=== PATIENT | male | born 1970 | race Caucasian/White ===

== ENCOUNTER 2024-03-03 16:19 | Outpatient (AMB) | payer BC, SELFPAY ==
[2024-03-03 16:20] VITALS: BP 142/88; PULSE 101; TEMP 36.9; O2SAT 99; BMI 28.2
--- NOTE | 2024-03-03 16:20 | AM.OFFWIN_ITS ---
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 Movement of changing position in sleep brings on sudden dizzy spell and feels like passing out. Patient Tobacco Use Status: Never used Tobacco Allergies No Known Allergies Allergy (Unverified 06/15/20 15:06) HPI HPI Comments History of Present Illness Details Patient is a 53-year-old male who is presenting with neck pain. Patient states that when he is sleeping in the middle of the night he wakes up, opens his eyes turns his head to the left or right and immediately gets dizzy and feels like he is going to pass out. He states he does wear his sleep apnea machine each night and is scheduled to have a sleep study soon. He states he has a history PVCs and had a Holter monitor test in October of 2022 which showed he had some PVCs and 2 runs of nonsustained V-tach, no medications were added by his micromatic hone operator. Patient states he feels like his symptoms are getting worse over the last 6 months. He also admits to a dull pain in his neck. He denies fevers. He states he immediately took an EKG via his Apple watch, both times it happened overnight last night and he showed me these EKG with a heart rate of 105 and 107. Patient states he has been eating and drinking normally, does not have any kidney disease and has never had an electrolyte abnormality. He has not experiencing these symptoms currently. [facility] Social History Patient Tobacco Use Status: Never used Tobacco Review of Systems Const All systems reviewed & are unremarkable except as noted in HPI and below Physical Exam Vital Signs: Last Vital Signs Temp 98.4 F 03/03/24 16:20 Pulse 101 H 03/03/24 16:20 BP 142/88 H 03/03/24 16:20 Pulse Ox 99 03/03/24 16:20 Oxygen Delivery Method Room Air 03/03/24 16:20 BMI result Body Mass Index 28.2 Const General: cooperative, healthy appearing, comfortable, no acute distress and well developed Orientation/consciousness: patient oriented x3 Limitations: no limitations HEENT Head: Yes normal to inspection Ears: external ears normal and TM's normal bilaterally General nose exam: Normal external nose present Eyes General: appearance normal, both eyes and all related structures Neck Neck: Yes normal visual inspection, Yes full ROM, Yes no meningeal signs, Yes trachea midline and No tender Resp Effort & Inspection: normal respiratory effort and able to speak in complete sentences Skin General skin exam: no rashes or lesions noted Neuro General: patient oriented x3 and no meningeal signs Extrem General: Yes normal to inspection Assessment & Plan Assessment & Plan (1) Neck pain: Code(s): M54.2 - Cervicalgia Plan: Ordered neck x-ray, patient will return to the clinic tomorrow to have that done to rule out any mechanical issues but if he does need a follow-up CT scan, I advised I can not order here, patient aware. Advised to follow up with his micromatic hone operator as he likely needs a Holter monitor test to be redone as his symptoms are getting worse. His ears cleaned no fluid behind the tympanic membranes, he did not complain of any head congestion tenderness is very unlikely something to do with his ears. Plan see above Orders: Orders XR soft tissue neck Today M54.2 - Cervicalgia Coding Level of Care Code New Pt Level 3 (06948) Diagnoses Neck pain M54.2
== END 2024-03-03 16:59 | disposition home or self-care (01) ==
PROVIDERS: PCP Internal Medicine; Visit Provider Physician Assistant
DX: M54.2 Cervicalgia (principal)
CPT/HCPCS: 99203

== ENCOUNTER 2024-03-03 20:11 | Observation (INO) | payer BC, SELFPAY ==
--- NOTE | ~2024-03-03 | CT_ITS ---
EXAMINATION: CT ANGIOGRAM HEAD CT ANGIOGRAM NECK CLINICAL INFORMATION: dissection, ? Large vessel occlusion, dizziness COMPARISON: None. TECHNIQUE: Test bolus sequences followed by intravenous administration 85 mL of Omnipaque 350. Helical imaging was performed in the axial plane from the aortic arch to the skull vertex. Delayed postcontrast imaging of the head was also performed. The data was processed at the ct scan technologist's workstation for generation of MIP sequences. Angled MIPs and volume rendered reformatted images were also generated at an offline 3D workstation. Stenoses are assessed in accordance with Giles et al. Quantification of Carotid Stenosis on CT Angiography. AJR 2006. 27(1):13-19. [address] CT examination was performed using dose optimization techniques as appropriate, variously including the following: *Automated exposure control *Adjustment of mA and/or kV according to patient size (this includes techniques or standardized protocols for targeted exams where dose is matched to indication/reason for exam; i.e. extremities or head) *Use of iterative reconstruction technique DLP: 2499 mGy-cm FINDINGS: CT HEAD: The ventricles and sulci are normal in size and configuration without significant volume loss or hydrocephalus. There is no abnormal attenuation within the brain parenchyma. No territorial loss of fam-white differentiation. No acute intracranial hemorrhage or extra-axial fluid collection. No mass lesion, significant mass effect, or herniation pattern. No pathologic intra-axial enhancement or regional oligemia. The orbits are grossly normal. Retention cyst along the floor of the right maxillary sinus. No mastoid effusion. Osseous structures are intact. CTA HEAD: No hemodynamically significant stenosis or occlusion in the anterior or posterior circulation. Duplicated anterior communicating arteries and MEMO trifurcation, a normal anatomic variant. Right MCA trifurcation noted. No aneurysms and no high flow vascular malformations. Timing of the contrast bolus allows assessment of the major dural venous sinuses, which all opacify normally CTA NECK: Classic 3 vessel branching pattern of the aortic arch. Origins of the great vessels are widely patent. The common carotid arteries are widely patent. Minimal atherosclerotic plaque at the carotid bifurcations without associated stenosis. The internal carotid arteries are widely patent. The right vertebral artery is dominant. The vertebral artery ostia are widely patent. Both vertebral arteries are widely patent throughout their extracranial cervical course. CT NECK: Suggestion of thyromegaly can be correlated with thyroid function tests. 3 mm hypodensity in the left thyroid lobe below size criteria for imaging follow-up. Coronary artery vascular calcifications. Disc osteophyte complex at C5-C6 with contiguous uncovertebral joint hypertrophy contribute to apparent mild to moderate spinal canal and severe left greater than right neural foraminal stenosis. CT/CT angio head neck IMPRESSION: 1. No acute intracranial findings. 2. No acute arterial occlusion or hemodynamically significant stenosis within the head or neck. No arterial dissection or intracranial saccular aneurysm. 3. Suggestion of thyromegaly can be correlated with thyroid function tests. 4. Disc osteophyte complex at C5-C6 with contiguous uncovertebral joint hypertrophy contribute to apparent mild to moderate spinal canal and severe left greater than right neural foraminal stenosis.
--- NOTE | ~2024-03-03 | XR_ITS ---
EXAMINATION: XR CHEST CLINICAL INFORMATION: High blood pressure COMPARISON: 07/08/2007, report only TECHNIQUE: 2 views of the chest were obtained. FINDINGS: No significant abnormality is noted involving the heart, lungs, mediastinum, bony thorax or soft tissues. XR/XR chest 2V IMPRESSION: Unremarkable examination.
[2024-03-03 20:20] VITALS: BP 181/107; PULSE 87; RESP 17; TEMP 36.9; O2SAT 98; BMI 28.2
--- NOTE | 2024-03-03 20:20 | ED.GENADULT ---
HPI - General Adult General Chief complaint: General Medical Stated complaint: hypertensive crisis, dizziness Time Seen by Provider: 03/03/24 21:05 History of Present Illness HPI narrative: Patient is a 53-year-old male has a history of ventricular tachycardia in the past. Related Data Allergies Allergy/AdvReac Type Severity Reaction Status Date / Time No Known Allergies Allergy Verified 03/03/24 20:22 REPLACED BY [facility] Past Medical History Medical History FATOUMATA (obstructive sleep apnea) Mood disorder Social History Social History Patient Tobacco Use Status: Never used Tobacco Smoked in Last 30 Days: No Use of substances other than those prescribed or required for medical reasons: No Advance Directives: No Advance Directives Information Provided: No Do you have a plan to hurt others: No Plan Physical Exam ED Vital Signs: Vital Signs - 24 hr 03/03/24 20:20 03/03/24 21:09 03/03/24 21:46 Temperature 98.4 F 98.0 F Pulse Rate 87 89 74 Respiratory Rate 17 16 16 Blood Pressure 181/107 H 159/103 H 171/91 H Pulse Oximetry 98 98 97 Oxygen Delivery Method Room Air Room Air Room Air 03/03/24 23:43 Temperature 98.8 F Pulse Rate 84 Respiratory Rate 15 Blood Pressure 164/97 H Pulse Oximetry 97 Oxygen Delivery Method Room Air BMI result Body Mass Index 28.2 Course Course Course Narrative: This is a rapid medical exam performed by Tu Eddy NP: Additional HPI, ROS, PE not included below will be deferred to primary provider. Patient is a 53-year-old male presenting to the ED stating he is here for a hypertensive crisis. SBP 193 at home. Recent moderate headaches, currently 2/10. Denies visual changes. Reports intermittent dizziness, worse with position changes especially at night, states I feel like I'm going to pass out. BP 181/107 in triage. Not on BP medication currently. Plan: EKG, labs, CXR Medications Administered Discontinued Medications Generic Name Dose Route Start Last Admin Trade Name Freq PRN Reason Stop Dose Admin Iohexol 80 ml 03/03/24 22:44 03/03/24 22:45 Iohexol 350 Mg/Ml 100 Ml Infus..Btl IV 03/03/24 22:45 80 ml ONCE ONE Administration Medical Decision Making Lab Data 03/03/24 20:33 03/03/24 20:33 Labs: Lab Results 03/03/24 Range/Units 20:33 WBC 9.8 (4.8-10.8) X10*3/uL RBC 5.07 (4.60-5.80) X10*6/uL Hgb 15.7 (14.0-18.0) g/dl Hct 45.2 (42.0-52.0) % MCV 89.2 (80.0-98.0) fL MCH 31.0 (27.0-33.0) pg MCHC 34.7 (31.0-36.0) g/dl RDW 12.5 (11.0-16.0) % Plt Count 247 (160-400) X10*3/uL MPV 10.6 (9.4-12.4) fL Immature Gran % (Auto) 0.2 (0.0-0.4) % Neut % (Auto) 54.4 (45-73) % Lymph % (Auto) 36.6 (20-40) % [place] % (Auto) 8.0 (2-11) % Eos % (Auto) 0.7 (0-4) % Baso % (Auto) 0.1 (0-2) % Lymph # (Auto) 3.6 (1.2-4.9) X10*3/uL [place] # (Auto) 0.8 (0.1-1.2) X10*3/uL Eos # (Auto) 0.1 (0.0-0.4) X10*3/uL Baso # (Auto) 0.0 (0.0-0.2) X10*3/uL Abs Immat Gran (auto) 0.02 (0.00-0.03) X10*3/uL Absolute Neuts (auto) 5.3 (2.0-8.3) x10*3/uL Absolute Nucleated RBC 0.000 (0.0-0.012) X10*3/uL Nucleated RBC % (auto) 0.0 (0.0-0.2) /100WBC PT 11.9 (11.1-13.3) SEC INR 1.0 (0.9-1.1) Sodium 139 (135-145) mmol/L Potassium 4.3 (3.3-5.1) mmol/L Chloride 102 (96-108) mmol/L Carbon Dioxide 26 (22-29) mmol/L Anion Gap 15 (12-20) BUN 15 (9-16) mg/dL Creatinine 1.00 (0.5-1.4) mg/dL Estim Creat Clear Calc 104.8 Estimated GFR > 60 Random Glucose 124 H (60-115) mg/dL Calcium 9.6 (8.4-10.2) mg/dL Total Bilirubin 0.5 (0.0-1.0) mg/dL AST 20 (5-37) U/L ALT 28 (0-40) U/L Alkaline Phosphatase 64 (39-117) U/L Troponin I High Sens 3.2 (<3.5-35.0) ng/L Total Protein 7.6 (6.5-8.0) g/dL Albumin 4.4 (3.5-5.0) g/dL Discharge Plan Discharge Clinical Impression: Near syncope Patient Disposition: Admitted as Observation Print Language: Chinese
--- NOTE | 2024-03-03 20:22 | ECG_ITS ---
Test Reason : hypertension Blood Pressure : / mmHG Vent. Rate : 094 BPM Atrial Rate : 094 BPM P-R Int : 180 ms QRS Dur : 100 ms QT Int : 362 ms P-R-T Axes : 064 -07 031 degrees QTc Int : 452 ms Normal sinus rhythm Normal ECG No previous ECGs available Referred By: Debbie Eddy Electronically Signed By:TOYA BLANCO MD
[2024-03-03 20:36] LABS: MANUAL DIFF FLAG NO
[2024-03-03 20:43] LABS: Prothrombin Time 11.9 SEC (11.1-13.3)
[2024-03-03 20:53] LABS: Alanine Aminotransferase 28 U/L (0-40); Albumin Level 4.4 g/dL (3.5-5.0); Alkaline Phosphatase 64 U/L (39-117); Anion Gap 15 (12-20); Aspartate Amino Transferase 20 U/L (5-37); Bilirubin Total 0.5 mg/dL (0.0-1.0); Blood Urea Nitrogen 15 mg/dL (9-16); Calcium 9.6 mg/dL (8.4-10.2); Carbon Dioxide 26 mmol/L (22-29); Chloride 102 mmol/L (96-108); Creatinine Clr Calc Pharmacy 104.8; Estimated Glomerular Filt Rate > 60; Glucose Random 124 mg/dL (60-115); Potassium 4.3 mmol/L (3.3-5.1); Sodium 139 mmol/L (135-145); Total Protein 7.6 g/dL (6.5-8.0)
[2024-03-03 21:00] LABS: Troponin-I High Sensitivity 3.2 ng/L (<3.5-35.0)
[2024-03-03 21:04] LABS: Basophils Percent Auto 0.1 % (0-2); Eosinophils Absolute Auto 0.1 X10*3/uL (0.0-0.4); Eosinophils Percent Auto 0.7 % (0-4); Hematocrit 45.2 % (42.0-52.0); Hemoglobin 15.7 g/dl (14.0-18.0); Imm Gran Abs Auto 0.02 X10*3/uL (0.00-0.03); Imm Gran Pct Auto 0.2 % (0.0-0.4); Lymphocytes Absolute Auto 3.6 X10*3/uL (1.2-4.9); Lymphocytes Percent Auto 36.6 % (20-40); Mean Corpuscular HGB Conc 34.7 g/dl (31.0-36.0); Mean Corpuscular Volume 89.2 fL (80.0-98.0); Mean Platelet Volume 10.6 fL (9.4-12.4); Monocytes Absolute Auto 0.8 X10*3/uL (0.1-1.2); Neutrophils Absolute Auto 5.3 x10*3/uL (2.0-8.3); Neutrophils Percent Auto 54.4 % (45-73); Platelet Count 247 X10*3/uL (160-400); Red Blood Count 5.07 X10*6/uL (4.60-5.80); Red Cell Distribution Width 12.5 % (11.0-16.0); White Blood Count 9.8 X10*3/uL (4.8-10.8)
[2024-03-03 21:09] VITALS: BP 159/103; PULSE 89; RESP 16; O2SAT 98
[2024-03-03 21:46] VITALS: BP 171/91; PULSE 74; RESP 16; TEMP 36.7; O2SAT 97
--- NOTE | 2024-03-03 21:48 | ED.GENADULT ---
HPI - General Adult General Chief complaint: General Medical Stated complaint: hypertensive crisis, dizziness Time Seen by Provider: 03/03/24 21:05 History of Present Illness HPI narrative: Patient is a 53-year-old male with a history of dizziness headaches. He is episodes usually happens when patient wakes up from his sleep. He has a history of sleep apnea. When he turns his head he feels very lightheaded. Then feels like he is about to pass out. Lasts for few seconds and then gone away. Has a history of ventricular tachycardia. Patient claims he had a Holter monitor a year ago had 14 beats of V-tach in a row. Had an echo done at his horticultural farmer's office had a stress test done which were both negative. His horticultural farmer did not want to put him on antiarrhythmic. Patient denies any changes in medication. Denies any recreational drugs. Denies any chest pain. Denies any shortness of breath. Denies any diaphoresis. Patient is from home. Related Data Allergies Allergy/AdvReac Type Severity Reaction Status Date / Time No Known Allergies Allergy Verified 03/03/24 20:22 [facility] Past Medical History Attestation statement: The following information was validated with the patient. Medical History FATOUMATA (obstructive sleep apnea) Mood disorder Social History Social History Patient Tobacco Use Status: Never used Tobacco Smoked in Last 30 Days: No Use of substances other than those prescribed or required for medical reasons: No Advance Directives: No Advance Directives Information Provided: No Do you have a plan to hurt others: No Plan Physical Exam ED Vital Signs: Vital Signs - 24 hr 03/03/24 20:20 03/03/24 21:09 03/03/24 21:46 Temperature 98.4 F 98.0 F Pulse Rate 87 89 74 Respiratory Rate 17 16 16 Blood Pressure 181/107 H 159/103 H 171/91 H Pulse Oximetry 98 98 97 Oxygen Delivery Method Room Air Room Air Room Air 03/03/24 23:43 Temperature 98.8 F Pulse Rate 84 Respiratory Rate 15 Blood Pressure 164/97 H Pulse Oximetry 97 Oxygen Delivery Method Room Air BMI result Body Mass Index 28.2 Appearance: Alert. Oriented X3. No acute distress. Eyes: Pupils equal, round and reactive to light. ENT: Pharynx normal. Neck: Normal inspection. Neck supple. No lymph nodes noted. No crepitus CVS: Normal heart rate and rhythm. Pulses normal. Normal S1 and S2 Respiratory: No respiratory distress. Breath sounds normal. No Wheezing. No rales Abdomen: Soft and nontender. No rigidity. No distention. good BS x4 Skin: Skin warm and dry. Normal skin color. Normal skin turgor. Extremities: No lower extremity edema. Neurovascular intact to all extremities. No Lacerations. No Rash Neuro: Oriented X 3. No motor deficit. No sensory deficit. Moving all extermities. No slurred speech Medications Administered Discontinued Medications Generic Name Dose Route Start Last Admin Trade Name Freq PRN Reason Stop Dose Admin Iohexol 80 ml 03/03/24 22:44 03/03/24 22:45 Iohexol 350 Mg/Ml 100 Ml Infus..Btl IV 03/03/24 22:45 80 ml ONCE ONE Administration Medical Decision Making Medical Decision Making [facility] Narrative: Patient is a 53-year-old male presents today with having episodes of light-headedness near syncopal episodes when he sleeping. Patient claims he wakes up he feels very lightheaded almost a point of passing out worse when he moves his head patient's CTA of the head and neck was grossly negative. CT scan of the head was grossly negative for any acute evidence of bleeding. Patient troponin is negative. My interpretation patient's EKG showed a sinus rhythm heart rate is 90 NH QRS QTC normal no acute ST segment elevation. Differential Diagnosis Differential Diagnoses: The differential diagnosis associated with the presentation includes Syncope, ACS, coronary artery disease, arrhythmia, hypertension Admission/Observation Consideration of admission/observation: Escalation of care including admission/observation considered Will admit patient for observation overnight Consult Healthcare Provider Management of the patient was discussed with: Hospitalist Lab Data [facility] Lab Attestation statement: I reviewed the patient's lab results. 03/03/24 20:33 03/03/24 20:33 Labs: Lab Results 03/03/24 Range/Units 20:33 WBC 9.8 (4.8-10.8) X10*3/uL RBC 5.07 (4.60-5.80) X10*6/uL Hgb 15.7 (14.0-18.0) g/dl Hct 45.2 (42.0-52.0) % MCV 89.2 (80.0-98.0) fL MCH 31.0 (27.0-33.0) pg MCHC 34.7 (31.0-36.0) g/dl RDW 12.5 (11.0-16.0) % Plt Count 247 (160-400) X10*3/uL MPV 10.6 (9.4-12.4) fL Immature Gran % (Auto) 0.2 (0.0-0.4) % Neut % (Auto) 54.4 (45-73) % Lymph % (Auto) 36.6 (20-40) % [place] % (Auto) 8.0 (2-11) % Eos % (Auto) 0.7 (0-4) % Baso % (Auto) 0.1 (0-2) % Lymph # (Auto) 3.6 (1.2-4.9) X10*3/uL [place] # (Auto) 0.8 (0.1-1.2) X10*3/uL Eos # (Auto) 0.1 (0.0-0.4) X10*3/uL Baso # (Auto) 0.0 (0.0-0.2) X10*3/uL Abs Immat Gran (auto) 0.02 (0.00-0.03) X10*3/uL Absolute Neuts (auto) 5.3 (2.0-8.3) x10*3/uL Absolute Nucleated RBC 0.000 (0.0-0.012) X10*3/uL Nucleated RBC % (auto) 0.0 (0.0-0.2) /100WBC PT 11.9 (11.1-13.3) SEC INR 1.0 (0.9-1.1) Sodium 139 (135-145) mmol/L Potassium 4.3 (3.3-5.1) mmol/L Chloride 102 (96-108) mmol/L Carbon Dioxide 26 (22-29) mmol/L Anion Gap 15 (12-20) BUN 15 (9-16) mg/dL Creatinine 1.00 (0.5-1.4) mg/dL Estim Creat Clear Calc 104.8 Estimated GFR > 60 Random Glucose 124 H (60-115) mg/dL Calcium 9.6 (8.4-10.2) mg/dL Total Bilirubin 0.5 (0.0-1.0) mg/dL AST 20 (5-37) U/L ALT 28 (0-40) U/L Alkaline Phosphatase 64 (39-117) U/L Troponin I High Sens 3.2 (<3.5-35.0) ng/L Total Protein 7.6 (6.5-8.0) g/dL Albumin 4.4 (3.5-5.0) g/dL Independent Interpretation I performed an independent interpretation of an: EKG (EKG showed a sinus rhythm heart rate is 80 NH QRS QTC normal no acute ST segment elevation) and CT Scan (CTA grossly negative) Radiology Impression Discussion of test interpretation with radiology: I have reviewed the radiologist's reading. Independent Historian Clinical information obtained from an independent historian. History obtained from or confirmed by: Spouse Discharge Plan Discharge Clinical Impression: Near syncope Patient Disposition: Admitted as Observation Print Language: Setswana
[2024-03-03] MEDS: iohexoL 350 MG/ML 100 ML INFUS..BTL 80 ML IV (22:45)
[2024-03-03 23:43] VITALS: BP 164/97; PULSE 84; RESP 15; TEMP 37.1; O2SAT 97
--- NOTE | 2024-03-04 00:52 | P.HPHOSP_ITS ---
History of Present Illness Date of Service: 03/04/24 Chief Complaint: Dizziness This is a 53-year-old male with pertinent history of mood disorder, FATOUMATA on CPAP who presents to the emergency department for evaluation of dizziness. Patient states she has been having episodes of dizziness which happened 3-4 hours into sleep. It wakes him up from sleep and he feels like he would pass out. This has happened consecutively for the last 3 days. Patient states occasionally he has been having dizziness in the day but he attributes that to stress and standing for a long time. The episodes at night happened sometimes when he tries to wake up from sleep. He was noticed to have skipped beats by his PCP and was referred to a clerical and administrative workers. Had a Holter monitor and had 2 episodes of nonsustained V-tach with 14 beats on the Holter monitor. Had an echo and stress test done at clerical and administrative workers's office which was negative. Patient is only on Xanax for prescription medications. Takes [id number] vitamins. No chest pain or palpitations during the episodes of dizziness. No room spinning sensation or gait dysfunction. No fever, chills, shortness of breath, palpitations, abdominal pain, changes in urinary or bowel habits. In the emergency department, CTA head and neck without any acute abnormality. Review of Systems 2 Constitutional: Constitutional: Reports no additional constitutional complaints ENT: Reports dizziness Cardiovascular: Cardiovascular: Reports no additional cardiovascular complaints Respiratory: Respiratory: Reports no additional respiratory complaints Gastrointestinal: Gastrointestinal: Reports no additional gastrointestinal complaints Genitourinary: Genitourinary: Reports no additional male genitourinary complaints Neurologic: Reports dizziness [facility] Medical History FATOUMATA (obstructive sleep apnea) Mood disorder Pertinent family history: No family history of early CAD Social History Patient Tobacco Use Status: Never used Tobacco Smoked in Last 30 Days: No Use of substances other than those prescribed or required for medical reasons: No Advance Directives: No Advance Directives Information Provided: No Do you have a plan to hurt others: No Plan Meds Allergies Allergy/AdvReac Type Severity Reaction Status Date / Time No Known Allergies Allergy Verified 03/03/24 20:22 Physical Exam 2 Vital Signs and Narrative: Vital Signs: Last Vital Signs Temp 98.8 F 03/03/24 23:43 Pulse 84 03/03/24 23:43 Resp 15 03/03/24 23:43 BP 164/97 H 03/03/24 23:43 Pulse Ox 97 03/03/24 23:43 O2 Del Method Room Air 03/03/24 23:43 BMI result Body Mass Index 28.2 Middle-aged male lying in bed in no distress Neck supple, no JVD Regular rate and rhythm, S1-S2 heard Regular breath sounds bilaterally, no wheezing or crackles appreciated Abdomen soft nontender, no guarding, no rigidity Patient is awake, alert and oriented to self, place, time and person ; no focal motor deficit Psych: Normal mood No pedal edema Results Labs 03/03/24 20:33 03/03/24 20:33 Labs: Laboratory Results - last 24 hr 03/03/24 20:33 MCV 89.2 MCH 31.0 MCHC 34.7 RDW 12.5 Plt Count 247 MPV 10.6 Immature Gran % (Auto) 0.2 Neut % (Auto) 54.4 Lymph % (Auto) 36.6 [place] % (Auto) 8.0 Eos % (Auto) 0.7 Baso % (Auto) 0.1 Lymph # (Auto) 3.6 [place] # (Auto) 0.8 Eos # (Auto) 0.1 Baso # (Auto) 0.0 Abs Immat Gran (auto) 0.02 Absolute Neuts (auto) 5.3 Absolute Nucleated RBC 0.000 Nucleated RBC % (auto) 0.0 PT 11.9 INR 1.0 Anion Gap 15 Estim Creat Clear Calc 104.8 Estimated GFR > 60 Random Glucose 124 H Calcium 9.6 Total Bilirubin 0.5 AST 20 ALT 28 Alkaline Phosphatase 64 Troponin I High Sens 3.2 Total Protein 7.6 Albumin 4.4 Imaging Radiologist's Impressions: Impressions Chest X-Ray 03/03/24 20:38 IMPRESSION: Unremarkable examination. Head/Neck CTA 03/03/24 22:54 IMPRESSION: 1. No acute intracranial findings. 2. No acute arterial occlusion or hemodynamically significant stenosis within the head or neck. No arterial dissection or intracranial saccular aneurysm. 3. Suggestion of thyromegaly can be correlated with thyroid function tests. 4. Disc osteophyte complex at C5-C6 with contiguous uncovertebral joint hypertrophy contribute to apparent mild to moderate spinal canal and severe left greater than right neural foraminal stenosis. Assessment and Plan (1) Near syncope: Status: Acute Plan This is a 53-year-old male with pertinent history of mood disorder, FATOUMATA on CPAP who presents to the emergency department for evaluation of dizziness. #. Dizziness, presyncope: No vertigo or disequilibrium. Will admit patient for observation cardiac monitoring. Does have a history of nonsustained V-tach. Consulting Cardiology. CTA head and neck without any acute abnormalities. Blood pressure without differential in bilateral upper extremities. Will check magnesium #. Mood disorder: Continue home mood stabilizers #. FATOUMATA: On CPAP at bedtime Med rec pending DVT prophylaxis: Lovenox Full code Quality Stroke Does the patient have a stroke diagnosis?: No VTE Prior VTE?: No VTE Risk Level:: Medical - moderate - high VTE Device Contraindication: Treatment Not Indicated VTE Drug Contraindication: N/A - Med Ordered
[2024-03-04 01:28] VITALS: BP 153/92; PULSE 81; RESP 15; TEMP 37.1; O2SAT 96
[2024-03-04] MEDS: Melatonin 3 MG TABLET 6 MG PO (02:07)
[2024-03-04 03:43] VITALS: BP 131/78; PULSE 64; RESP 15; TEMP 36.6; O2SAT 98
[2024-03-04 05:13] LABS: Hematocrit 44.4 % (42.0-52.0); Hemoglobin 15.3 g/dl (14.0-18.0); Mean Corpuscular HGB Conc 34.5 g/dl (31.0-36.0); Mean Corpuscular Hemoglobin 30.4 pg (27.0-33.0); Mean Corpuscular Volume 88.3 fL (80.0-98.0); Mean Platelet Volume 10.6 fL (9.4-12.4); Platelet Count 242 X10*3/uL (160-400); Red Blood Count 5.03 X10*6/uL (4.60-5.80); Red Cell Distribution Width 12.5 % (11.0-16.0); White Blood Count 7.8 X10*3/uL (4.8-10.8)
[2024-03-04 05:29] LABS: Anion Gap 14 (12-20); Blood Urea Nitrogen 13 mg/dL (9-16); Calcium 9.5 mg/dL (8.4-10.2); Carbon Dioxide 25 mmol/L (22-29); Chloride 105 mmol/L (96-108); Creatinine Clr Calc Pharmacy 126.3; Estimated Glomerular Filt Rate > 60; Glucose Random 111 mg/dL (60-115); Potassium 4.1 mmol/L (3.3-5.1); Sodium 140 mmol/L (135-145)
[2024-03-04 06:25] VITALS: BP 129/74; PULSE 61; RESP 15; TEMP 37.1; O2SAT 98
--- NOTE | 2024-03-04 06:47 | PC.NURSE ---
Patient is alert and oriented x3, VSS. Patient denies any pain, no episodes of dizziness over night. Call ratliff in reach. Plan of care ongoing.
--- NOTE | 2024-03-04 09:14 | MHC.CM.PN ---
CM met with Patient at bedside, in the ED and addressed PERES with him (original was given to Patient and a copy will be placed on the chart). Patient lives in a house with his /HCP/Sarah, 17 year old Daughter, and 16 year old Son and he required no services nor DME [employer]. Home/self care is the goal and CM has initiated and will follow for dc planning. PCP is Dr. Tristin Mancuso.
--- NOTE | 2024-03-04 09:21 | PHA.MEDREC ---
Addendum entered by Ashwini Keys RPh 03/04/24 09:29: VERIFIED BY [facility] Original Note: Pharmacy Consult ? Medication Reconciliation Pharmacy has completed the medication reconciliation.
[2024-03-04] MEDS: 0.9 % Sodium Chloride Flush 3 ML SYRINGE IVFLUSH (09:25)
[2024-03-04] MEDS: Enoxaparin Sodium 40 MG/0.4 ML SYRINGE SUBCUT (09:25)
[2024-03-04 09:34] VITALS: BP 146/90; PULSE 82; RESP 16; TEMP 36.8; O2SAT 97
--- NOTE | 2024-03-04 10:29 | P.DS_ITS ---
DS: Providers Provider Date of Service: 03/04/24 Date of admission: 03/04/24 01:03 Primary care physician: Unknown Physician Consults: 03/04/24 00:50 Consult to Cardiology Routine Consulting Provider: [facility] Reason for consultation: c/o dizziness, h/o nsvt Has provider been notified: Yes DS: Diagnosis Discharge Diagnosis (1) Near syncope: Status: Acute DS: Summary Hospital Course Hospital Course: admission hpi Chief Complaint: Dizziness This is a 53-year-old male with pertinent history of mood disorder, FATOUMATA on CPAP who presents to the emergency department for evaluation of dizziness. Patient states she has been having episodes of dizziness which happened 3-4 hours into sleep. It wakes him up from sleep and he feels like he would pass out. This has happened consecutively for the last 3 days. Patient states occasionally he has been having dizziness in the day but he attributes that to stress and standing for a long time. The episodes at night happened sometimes when he tries to wake up from sleep. He was noticed to have skipped beats by his PCP and was referred to a [facility]. Had a Holter monitor and had 2 episodes of nonsustained V-tach with 14 beats on the Holter monitor. Had an echo and stress test done at [facility]'s office which was negative. Patient is only on Xanax for prescription medications. Takes [id number] vitamins. No chest pain or palpitations during the episodes of dizziness. No room spinning sensation or gait dysfunction. No fever, chills, shortness of breath, palpitations, abdominal pain, changes in urinary or bowel habits. In the emergency department, CTA head and neck without any acute abnormality. Hospital course: He was observed on cardiac telemetry without arrythmia, was evaluated by cardiology with recommendation to start toprol 50 mg daily and outpatient follow up and further testing. Final diagnosis: dizziness, HTN Time Attestation Discharge Coordination Time (in mins): 35 Quality: Safe Use of Opioids Does Pt have an Active Cancer Diagnosis on the Problem List?: No Quality: Stroke Does the patient have a stroke diagnosis?: No Physical Exam Vital Signs: Vital Signs: Last Vital Signs Temp 98.3 F 03/04/24 09:34 Pulse 82 03/04/24 09:34 Resp 16 03/04/24 09:34 BP 146/90 H 03/04/24 09:34 Pulse Ox 97 03/04/24 09:34 O2 Del Method Room Air 03/04/24 09:34 BMI result Body Mass Index 28.2 Discharge Plan Discharge Anticipated Discharge Date/Time: 03/04/24 10:26 Patient Disposition: Home, Self-Care Discharge Diagnosis: near syncope, uncontrolled HTN Referrals: Physician,Unknown J [Physician] - 1 Week Discharge Medications: New metoprolol succinate [Toprol XL] 50 mg tablet extended release 24 hr 50 mg PO DAILY Qty: 90 0RF Continued alprazolam 0.25 mg tablet 0.25 mg PO TID PRN (Reason: anxiety) magnesium oxide 400 mg (241.3 mg magnesium) Tablet 400 mg PO DAILY krill oil 500 mg Capsule 500 mg PO DAILY Discharge Orders: Discharge Order (Routine); Ordered 03/04/24 Ordered By: Oc Portillo Activity on Discharge: As tolerated Stand Alone Forms: Patient Portal Discharge page Print Language: Mongolian Care Plan Goals: to figure out what is causing dizziness Health Concerns: dizziness, high blood pressure Plan of Treatment: take Toprol xl 50 mg daily as directed and follow up with your Doctor and [facility] Assessment: see above Patient Instructions: Metoprolol (By mouth) Discharge Date/Time: 03/04/24 12:37
--- NOTE | 2024-03-04 10:39 | MHC.CM.PN ---
Patient has been medically cleared for dc to home today, self care.
[2024-03-04] MEDS: Magnesium Oxide 400 MG TABLET PO (10:41)
[2024-03-04] MEDS: Metoprolol Succinate ER 50 MG TAB.ER.24H PO (10:41)
--- NOTE | 2024-03-04 10:51 | P.CONCA_ITS ---
History of Present Illness History of Present Illness Date of Service: 03/04/24 Requesting physician: Oc Portillo Consult reason: other (Lightheadedness, palpitations) Chief complaint: Dizziness Narrative: I was consulted to see Juan in cardiology consultation today for symptoms suggestive of possible near-syncope and palpitations. Juan is a good historian but is anxious. He said last year he had a Holter monitor because he was starting having symptoms of palpitation that was done in the early part of the year. However due to consistent symptoms of palpitation subsequently ended up seeing Cardiology at [facility] Dr. Jordan, and subsequently he was told that on the Holter monitor he had earlier in the year he had nonsustained ventricular tachycardia to episode 1 of them 14 beat long. Subsequently underwent a workup at [facility] including an echocardiogram and a myocardial perfusion imaging to evaluate for structural heart disease. Both of these tests were within normal limits and he was advise non pharmacologic therapy. Since then he has remained anxious and symptomatic. Said at work he has a high least stressful job and when he is standing for prolonged period time he would get a little lightheaded. He has never had a syncopal episodes. He also has history of sleep apnea and has said that sleep apnea is changes life in his anxiety level is reduced since using CPAP for the last 5 years. However more recently he said he wakes up from sleep and he notices symptoms of palpitations. He has a smart watch and on that watch monitor he is noted to have sinus tachycardia up to 107 beats per minute which is unusual as he said he is just woken up from sleep. Said he does have CPAP titration study scheduled for today due to his sleep symptoms. However the last 3 days he says he has been having symptoms of palpitation at nighttime wakes him up from sleep and he would feel fast heart rate which she has recorded as sinus tachycardia on his Apple watch. However yesterday he got very anxious he measured his blood pressure which was significantly elevated and he told his to bring him to the emergency room. He says blood pressure recorded at home was 190/110. In the ER he also was noted to have elevated blood pressure but more in the range of 160/97. He says he has never had high blood pressure before. Review of Systems 2 Constitutional: Constitutional: Reports difficulty sleeping Eyes: Eyes: Reports no additional eye complaints ENT: Reports system reviewed and no additional complaints, except as documented Cardiovascular: Cardiovascular: Denies chest pain, Denies leg edema, Reports lightheadedness, Denies Loss of Consciousness, Reports palpitations and Denies dyspnea Respiratory: Respiratory: Reports no additional respiratory complaints and Denies dyspnea Gastrointestinal: Gastrointestinal: Reports no additional gastrointestinal complaints Genitourinary: Genitourinary: Reports no additional male genitourinary complaints Musculoskeletal: Musculoskeletal: Reports no additional musculoskeletal complaints Integumentary/Breasts: Skin/Breast: Reports system reviewed and no additional complaints, except as docu Neurologic: Reports system reviewed and no additional complaints, except as documented Endocrine: Endocrine: Reports no additional endocrine complaints and Reports palpitations PMFSH Past Medical History Medical History (Updated 03/04/24 @ 10:59 by Edwar Bunn MD) Nonsustained ventricular tachycardia FATOUMATA (obstructive sleep apnea) Mood disorder Social History Social History Household Members: Spouse and Children Housing: House Do you presently have visiting nurse or other home services: No Patient Tobacco Use Status: Never used Tobacco Smoked in Last 30 Days: No Use of substances other than those prescribed or required for medical reasons: No Advance Directives: No Advance Directives Information Provided: No Do you have a plan to hurt others: No Plan Recently lost weight without trying: No Eating poorly because of decreased appetite: No Nutrition Risks: No Nutritional Risk Poor oral hygiene: No service: No Meds Allergies Allergy/AdvReac Type Severity Reaction Status Date / Time No Known Allergies Allergy Verified 03/03/24 20:22 Active Medications: Current Medications Acetaminophen (Acetaminophen 325 Mg Tablet) 650 mg PO Q6H PRN PRN Reason: Pain, Mild (Pain Scale 1-3) Alprazolam (Alprazolam 0.25 Mg Tablet) 0.25 mg PO TID PRN PRN Reason: anxiety Enoxaparin Sodium (Enoxaparin Sodium 40 Mg/0.4 Ml Syringe) 40 mg SUBCUT Q24H TERESA Last Admin: 03/04/24 09:25 Dose: 40 mg Magnesium Oxide (Magnesium Oxide 400 Mg Tablet) 400 mg PO DAILY TERESA Last Admin: 03/04/24 10:41 Dose: 400 mg Melatonin (Melatonin 3 Mg Tablet) 6 mg PO BEDTIME PRN PRN Reason: Insomnia Last Admin: 03/04/24 02:07 Dose: 6 mg Metoprolol Succinate (Metoprolol Succinate Er 50 Mg Tab.Er.24h) 50 mg PO DAILY [facility]; Protocol Last Admin: 03/04/24 10:41 Dose: 50 mg Ondansetron HCl (Ondansetron Hcl 4 Mg/2 Ml Vial) 4 mg IVPUSH Q8H PRN PRN Reason: Nausea and Vomiting Sodium Chloride (0.9 % Sodium Chloride Flush 3 Ml Syringe) 3 ml IVFLUSH QSHIFT [facility] Last Admin: 03/04/24 09:25 Dose: 3 ml Home Medications ?Medication ?Instructions ?Recorded ?Confirmed ?Last Taken ?Type alprazolam 0.25 mg tablet 0.25 mg PO TID PRN anxiety 03/04/24 03/04/24 03/03/24 History krill oil 500 mg capsule 500 mg PO DAILY 03/04/24 03/04/24 03/03/24 History magnesium oxide 400 mg (241.3 mg 400 mg PO DAILY 03/04/24 03/04/24 03/03/24 History magnesium) tablet Physical Exam 2 Vital Signs: Vital Signs: Last Vital Signs Temp 98.3 F 03/04/24 09:34 Pulse 82 03/04/24 09:34 Resp 16 03/04/24 09:34 BP 146/90 H 03/04/24 09:34 Pulse Ox 97 03/04/24 09:34 O2 Del Method Room Air 03/04/24 09:34 BMI result Body Mass Index 28.2 Const: General: cooperative, comfortable, no acute distress, well developed, alert, awake and anxious Nutritional Appearance: average body habitus and well nourished Orientation/consciousness: patient oriented x3 Limitations: no limitations HEENT: Head: Yes normocephalic and Yes atraumatic Neck: Neck: Yes trachea midline, Yes supple and Yes no JVD Chest: Chest palpation & inspection: normal inspection of the chest Resp: Effort & Inspection: normal respiratory effort Auscultation: clear to auscultation bilaterally Cardio: Jugular venous distension: no JVD Rate: regular rate Rhythm: r egular rhythm Heart sounds: S1 normal heart sound present, S2 normal heart sound present, no click, no gallops, no murmurs and no rubs GI: Auscultation: normal bowel sounds Skin: General skin exam: no rashes or lesions noted Neuro: General: patient oriented x3 and no focal motor deficits Extrem: General: Yes no clubbing, cyanosis or edema Psych: Affect: Anxious affect present Objective Labs and Meds 03/04/24 04:40 03/04/24 04:40 Lab results: Laboratory Results - last 24 hr 03/03/24 03/04/24 20:33 04:40 WBC 9.8 7.8 RBC 5.07 5.03 Hgb 15.7 15.3 Hct 45.2 44.4 MCV 89.2 88.3 MCH 31.0 30.4 MCHC 34.7 34.5 RDW 12.5 12.5 Plt Count 247 242 MPV 10.6 10.6 Immature Gran % (Auto) 0.2 Neut % (Auto) 54.4 Lymph % (Auto) 36.6 [place] % (Auto) 8.0 Eos % (Auto) 0.7 Baso % (Auto) 0.1 Lymph # (Auto) 3.6 [place] # (Auto) 0.8 Eos # (Auto) 0.1 Baso # (Auto) 0.0 Abs Immat Gran (auto) 0.02 Absolute Neuts (auto) 5.3 Absolute Nucleated RBC 0.000 0.000 Nucleated RBC % (auto) 0.0 0.0 PT 11.9 INR 1.0 Sodium 139 140 Potassium 4.3 4.1 Chloride 102 105 Carbon Dioxide 26 25 Anion Gap 15 14 BUN 15 13 Creatinine 1.00 0.83 Estim Creat Clear Calc 104.8 126.3 Estimated GFR > 60 > 60 Random Glucose 124 H 111 Calcium 9.6 9.5 Magnesium 2.0 Total Bilirubin 0.5 AST 20 ALT 28 Alkaline Phosphatase 64 Troponin I High Sens 3.2 Total Protein 7.6 Albumin 4.4 EKG shows normal sinus rhythm with normal EKG with normal axis and normal intervals. Imaging Radiologist's impression: Impressions Chest X-Ray 03/03/24 20:38 IMPRESSION: Unremarkable examination. Head/Neck CTA 03/03/24 22:54 IMPRESSION: 1. No acute intracranial findings. 2. No acute arterial occlusion or hemodynamically significant stenosis within the head or neck. No arterial dissection or intracranial saccular aneurysm. 3. Suggestion of thyromegaly can be correlated with thyroid function tests. 4. Disc osteophyte complex at C5-C6 with contiguous uncovertebral joint hypertrophy contribute to apparent mild to moderate spinal canal and severe left greater than right neural foraminal stenosis. Assessment and Plan (1) Elevated blood pressure reading: Status: Acute Elevated blood pressure noted on multiple readings during this ED presentation. He has never had high blood pressure in the past. This is probably related to his increased stress in life at this point time associated with both his job as well as his medical diagnosis which she is very concerned about. I would suggest to use treat him with Toprol-XL 50 mg daily to counter his adrenergic stimulation at this point time. Advised stress mitigation strategies. Advised to monitor blood pressure at home maintain a log. Agree with CPAP retitration study to see if he is getting adequate therapy in absence of which she could have elevated blood pressure reading and increased stress. Follow-up as outpatient for this. I will consider if not already done doing plasma metanephrines as a screening test along with TSH to assess for any endocrine disorder. (2) Palpitations: Status: Acute Palpitations at current time on his EKG was chart most suggestive sinus tachycardia which is unusual as this is happening during sleep time. Question in adequate CPAP therapy and/or anxiety/panic attack related to nightmares. 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 Also with prior history of nonsustained ventricular tachycardia given the normal structure of the heart I did reassure him although I would think that he would benefit from a cardiac MRI to rule out any infiltrative disorder. This was discussed with him. I think he will benefit from Toprol therapy from both these perspectives. Will sign of the case. Patient can be discharged home Procedures Date of Service Date of Service: 03/04/24
== END 2024-03-04 12:37 | disposition home or self-care (01) ==
LOC: HO.ED 03-04 00:58 → HO.EDOVER 03-04 01:04 → HO.IMC 03-04 07:39
PROVIDERS: Registered Nurse Emergency; Admitting Provider Student in an Organized Health Care Education/Training Program; Emergency Provider Emergency Medicine Emergency Medical Services; PCP Family Medicine; Visit Provider Internal Medicine
DX: R55 Syncope and collapse (principal); I10 Essential (primary) hypertension; R00.2 Palpitations; R51.9 Headache, unspecified; G47.30 Sleep apnea, unspecified; Z99.89 Dependence on other enabling machines and devices
CPT/HCPCS: 36415; 70496; 70498; 71046; 80048; 80053; 83735; 84484; 85025; 85027; 85610; 93005; 96372; 99222; 99285; J1650; Q9967

== ENCOUNTER → 2024-03-03 20:22 | Outpatient (BNV) | payer BC, SELFPAY | PROVIDERS: Admitting Provider Student in an Organized Health Care Education/Training Program; Emergency Provider Emergency Medicine Emergency Medical Services; Visit Provider Internal Medicine Cardiovascular Disease | DX: I10 Essential (primary) hypertension (principal) | CPT/HCPCS: 93010 ==

== ENCOUNTER → 2024-03-03 20:43 | Outpatient (BNV) | payer BC, SELFPAY | PROVIDERS: Emergency Provider Emergency Medicine Emergency Medical Services; Visit Provider Student in an Organized Health Care Education/Training Program | DX: R55 Syncope and collapse (principal) | CPT/HCPCS: 99235; 99499 ==

== ENCOUNTER → 2024-03-04 01:03 | Outpatient (BNV) | payer BC, SELFPAY | PROVIDERS: Admitting Provider Student in an Organized Health Care Education/Training Program; Emergency Provider Emergency Medicine Emergency Medical Services; Visit Provider Internal Medicine Cardiovascular Disease | DX: R03.0 Elevated blood-pressure reading, without diagnosis of hypertension (principal); R00.2 Palpitations | CPT/HCPCS: 99222 ==